=== PATIENT | male | born 1995 | race Caucasian/White ===

== ENCOUNTER 2018-03-09 11:22 | Emergency (ER) | payer BC ==
--- NOTE | 2018-03-09 11:24 | ER Report ---
History and Physical Time Seen By MD: 11:23 HPI/ROS CHIEF COMPLAINT: Lower back pain HISTORY OF PRESENT ILLNESS: Patient is a 22-year-old male who presents to the emergency department complaining of low back pain that began last evening although he's been having episodes of back pain over the past few months without any identifiable traumatic injury. He fevers or chills. He denies any unexpected weight loss. He denies any incontinence of urine or stool. Denies any saddle anesthesia. Pain is localized to the lower back worse with movement better at rest. Patient has been taking Motrin and Tylenol without any significant relief. Patient has never been evaluated for back pain prior to today. No history of night sweats. No history of lung, thyroid, prostate, kidney cancer General: No fevers, no chills Neck: Supple, without adenopathy Ab: No pain, no nausea, no vomiting, no diarrhea Ext: Low back pain Neuro: No headaches, no numbness or tingling, no focal neurological deficit Skin: No rashes, no lesions Allergies: Coded Allergies: Penicillins (Verified Allergy, Mild, RASH, 03/09/18) Home Meds Active Scripts Hydrocodone Bit/Acetaminophen (HYDROCODON-ACETAMINOPHEN 5-325) 1 Each Tablet, 1 EACH PO Q4-6H Y for PAIN, #12 TAB 0 Refills TAKE ONE TABLET BY MOUTH EVERY 4-6 HOURS NEEDED FOR PAIN Prov:JOSLYN WIGGINS MD 03/09/18 Methocarbamol (METHOCARBAMOL) 750 Mg Tablet, 1500 MG PO QID for Muscle Relaxant , #30 TAB 0 Refills Prov:JOSLYN WIGGINS MD 03/09/18 Reported Medications Adapalene/Benzoyl Peroxide (Epiduo Forte 0.3-2.5% Gel Pump) 45 Gm Gel.w.pump 03/09/18 Clindamycin Phos/Skin Clnsr 19 (CLINDACIN ETZ KIT) 1 Each Kit 03/09/18 Sulfamethoxazole/Trimet 800-160 Mg Tab (BACTRIM DS TABLET) 1 Each Tablet, 1 TAB PO Q12H, TAB 03/09/18 Past Medical/Surgical History Noncontributory Constitutional Vital Sign - Last 24 Hours 03/09/18 11:27 Temp 97.9 Pulse 85 Resp 16 B/P (MAP) 144/84 Pulse Ox 96 O2 Delivery Room Air Physical Exam General appearance: alert no distress. Back: Thoracic spine [has no spinal or paraspinal tenderness to palpation.] Lumbar spine has no spinal tenderness moderateparaspinal tenderness bilaterally Gastroinal: Abdomen is soft, non tender, no masses.. Skin: No lesions and no rashes. Vascular: Normal capillary refill and pulses to feet. Neurological: Motor function: leg strength normal and symmetric for both legs Sensory function: normal for all leg dermatomes. Straight leg raise negative to 70 degrees. Reflexes normal bilaterally on legs. Medical Decision Making EKG/Imaging Imaging FACILITY: [facility] PATIENT NAME: Harrison Newton : 1995 MR: [id number] V: [id number] EXAM DATE: [id number] ORDERING PHYSICIAN: JOSLYN WIGGINS TECHNOLOGIST: [place] [facility] [place] Harrison Newton : 1995 Visit/Account:[id number] Date of Sevice: 03/09/2018 Exam type: LUMBAR SPINE 2 OR 3 VIEW History: Low back pain no history of trauma Comparison: None. Findings: There are five nonrib-bearing lumbar-type vertebral bodies present. There is no evidence of acute fractures or subluxations the disc spaces appear well- preserved. Incidentally noted is spina bifida occulta of S1 IMPRESSION: 1. Unremarkable lumbar spine series other than incidental note of spina bifida occulta of S1. If patient's symptoms persist MR may be helpful Report Dictated By: Isabella Silva MD at 03/09/2018 11:53 AM Report E-Signed By: Isabella Silva MD at 03/09/2018 11:54 AM WSN:[email or web address] ED Course/Re-evaluation ED Course Plan at this time will be oral pain medication with Percocet and methocarbamol. I will obtain x-ray of the lumbar spine. Decision to Disposition Date: Mar 09, 2018 Decision to Disposition Time: 12:10 Depart Departure Latest Vital Signs Vital Signs Date Time Temp Pulse Resp B/P (MAP) Pulse Ox O2 Delivery O2 Flow Rate FiO2 03/09/18 11:27 97.9 85 16 144/84 96 Room Air Impression: Primary Impression: Back pain Condition: Improved Disposition: HOME OR SELF-CARE Referrals: KERRY TARANGO MD 2 Weeks if symptoms persist New Scripts Hydrocodone Bit/Acetaminophen (HYDROCODON-ACETAMINOPHEN 5-325) 1 Each Tablet 1 EACH PO Q4-6H Y for PAIN, #12 TAB 0 Refills TAKE ONE TABLET BY MOUTH EVERY 4-6 HOURS NEEDED FOR PAIN Prov: JOSLYN WIGGINS MD 03/09/18 Methocarbamol (METHOCARBAMOL) 750 Mg Tablet 1500 MG PO QID for Muscle Relaxant, #30 TAB 0 Refills Prov: JOSLYN WIGGINS MD 03/09/18 Patient Instructions: Acute Low Back Pain (ED) Problem Qualifiers Primary Impression: Back pain Back pain location: low back pain Chronicity: acute Back pain laterality: bilateral Sciatica presence: without sciatica Qualified Codes: M54.5 - Low back pain JOSLYN WIGGINS MD Mar 09, 2018 11:24
[2018-03-09] MEDS ORDERED: ADAP45GE (11:33)
[2018-03-09] MEDS ORDERED: SULF-198 PO (11:33)
[2018-03-09] MEDS ORDERED: CLIN1KIT (11:33)
[2018-03-09] MEDS ORDERED: METHOCARBAMOL 500 MG TAB PO ONE (11:40)
--- NOTE | 2018-03-09 11:58 | RADIOLOGY IMAGING REPORT ---
FACILITY: [facility] - [place] PATIENT NAME: Harrison Newton : 1995 MR: [id number] V: [id number] EXAM DATE: ORDERING PHYSICIAN: JOSLYN WIGGINS TECHNOLOGIST: Location: [facility] - [place] Patient: Harrison Newton : 1995 Visit/Account:[id number] Date of Sevice: 03/09/2018 Exam type: LUMBAR SPINE 2 OR 3 VIEW History: Low back pain no history of trauma Comparison: None. Findings: There are five nonrib-bearing lumbar-type vertebral bodies present. There is no evidence of acute fr actures or subluxations the disc spaces appear well-preserved. Incidentally noted is spina bifida oc culta of S1 IMPRESSION: 1. Unremarkable lumbar spine series other than incidental note of spina bifida occulta of S1. If pa tient's symptoms persist MR may be helpful Report Dictated By: Isabella Silva MD at 03/09/2018 11:53 AM Report E-Signed By: Isabella Silva MD at 03/09/2018 11:54 AM WSN:[email or web address]
[2018-03-09] MEDS ORDERED: METH-280 PO (12:11)
[2018-03-09] MEDS ORDERED: LOR5/325 PO (12:11)
[2018-03-09 12:30] VITALS: BP 116/75
== END 2018-03-09 12:45 | disposition home or self-care (01) ==
LOC: ER 11:26
DX: M54.5 Low back pain (principal)
CPT/HCPCS: 72100; 99283

== ENCOUNTER 2018-04-22 22:27 | Emergency (ER) | payer BC ==
[~2018-04-22 22:27] MED LIST: ADAP45GE; CLIN1KIT; LOR5/325 PO; METH-280 PO; SULF-198 PO
--- NOTE | 2018-04-22 22:30 | ER Report ---
History and Physical Time Seen By MD: 22:29 HPI/ROS CHIEF COMPLAINT: Shortness breath HISTORY OF PRESENT ILLNESS: Patient is a 22-year-old male here with complaints of dyspnea in the setting of asthma. Patient reports that he developed sinus pressure, postnasal drip, cough, shortness of breath starting this morning which was refractory to his albuterol inhaler. Patient denies fevers, chills, chest pain, blurred vision, difficulty swallowing, throat swelling, abdominal pain, nausea, vomiting. Patient is afebrile at time of evaluation, tachycardic and short of breath. REVIEW OF SYSTEMS: Constitutional: No fever, no chills. Eyes: No discharge. ENT: No sore throat. Cardiovascular: No chest pain, no palpitations. Respiratory: + cough, + shortness of breath. Gastrointestinal: No abdominal pain, no vomiting. Genitourinary: No hematuria. Musculoskeletal: No back pain. Skin: No rashes. Neurological: No headache, + sinus pressure. Allergies: Coded Allergies: Penicillins (Verified Allergy, Mild, RASH, 04/22/18) Home Meds Active Scripts Prednisone (PREDNISONE) 20 Mg Tablet, 40 MG PO QDAY for 4 Days, #8 TAB Prov:MELANY ESPINOSA S DO 04/22/18 Doxycycline Hyclate (DOXYCYCLINE HYCLATE) 100 Mg Tablet, 100 MG PO BID for 6 Days, #12 TAB Prov:MELANY ESPINOSA S DO 04/22/18 Methocarbamol (METHOCARBAMOL) 750 Mg Tablet, 1500 MG PO QID for Muscle Relaxant, #30 TAB 0 Refills Prov:JOSLYN WIGGINS MD 03/09/18 Reported Medications Albuterol Sulfate (PROVENTIL HFA) 6.7 Gm Inh, 1-2 PUFF INH 3-4XD, INH 04/22/18 Discontinued Reported Medications Adapalene/Benzoyl Peroxide (Epiduo Forte 0.3-2.5% Gel Pump) 45 Gm Gel.w.pump 03/09/18 Clindamycin Phos/Skin Clnsr 19 (CLINDACIN ETZ KIT) 1 Each Kit 03/09/18 Sulfamethoxazole/Trimet 800-160 Mg Tab (BACTRIM DS TABLET) 1 Each Tablet, 1 TAB PO Q12H, TAB 03/09/18 Discontinued Scripts Hydrocodone Bit/Acetaminophen (HYDROCODON-ACETAMINOPHEN 5-325) 1 Each Tablet, 1 EACH PO Q4-6H PRN for PAIN, #12 TAB 0 Refills TAKE ONE TABLET BY MOUTH EVERY 4-6 HOURS NEEDED FOR PAIN Prov:JOSLYN WIGGINS MD 03/09/18 Hx Substance Use Disorder: No Hx Alcohol Use: No Constitutional Vital Sign - Last 24 Hours 04/22/18 04/22/18 04/22/18 22:31 22:40 22:49 Temp 98.0 Pulse 114 113 117 Resp 18 16 16 B/P (MAP) 127/82 Pulse Ox 94 O2 Delivery Room Air Physical Exam General Appearance: The patient is alert, has no immediate need for airway protection and no signs of toxicity. NAD Eyes: Pupils equal and round no pallor or injection. ENT, Mouth: Mucous membranes are moist. Respiratory: There are no retractions, lungs are diminished with scant wheezing Cardiovascular: + tachycardic Gastrointestinal: Abdomen is soft and non tender, no masses, bowel sounds normal. Neurological: No focal deficits Skin: Warm and dry, no rashes. Musculoskeletal: Neck is supple non tender. Extremities are nontender, nonswollen and have full range of motion. DIFFERENTIAL DIAGNOSIS: After history and physical exam differential diagnosis was considered for shortness of breath including but not limited to pulmonary infectious process, COPD, asthma, pulmonary embolus and viral syndrome, pneumonia, bronchitis Medical Decision Making EKG/Imaging Imaging Chest x-ray showed no acute consolidations. Please see official radiology report for further details. ED Course/Re-evaluation ED Course Patient is a 22-year-old male here with complaints of respiratory distress, cough, postnasal drip, sinus pressure which has been present since this morning. Patient reports that his home inhaler has not been giving significant relief of symptoms. Patient was saturating at 94% at time of arrival. She is otherwise hemodynamically stable, afebrile in no acute distress. X-ray showed no acute consolidation or signs of pneumonia. Patient was given DuoNebs for symptom management. Chest x-ray showed no acute consolidations. Patient was given his 1st dose of prednisone for asthma exacerbation, doxycycline for sinus infection. Patient was given a prescription for a total of 5 days of prednisone 40 mg daily therapy. He was also given a prescription for doxycycline a total of 7 day therapy twice a day. Patient voiced understanding of plan and agreed to return promptly if he develops worsening symptoms, double vision, blurred vision, difficulty swallowing, fevers or shortness of breath. Patient was stable at time of discharge. Decision to Disposition Date: Apr 22, 2018 Decision to Disposition Time: 23:31 Depart Departure Latest Vital Signs Vital Signs Date Time Temp Pulse Resp B/P (MAP) Pulse Ox O2 Delivery O2 Flow Rate FiO2 04/22/18 22:49 117 16 04/22/18 22:31 98.0 127/82 94 Room Air Impression: Primary Impression: Asthma exacerbation Additional Impression: Sinus infection Condition: Improved Disposition: HOME OR SELF-CARE New Scripts Prednisone (PREDNISONE) 20 Mg Tablet 40 MG PO QDAY for 4 Days, #8 TAB Prov: MELANY ESPINOSA DO 04/22/18 Doxycycline Hyclate (DOXYCYCLINE HYCLATE) 100 Mg Tablet 100 MG PO BID for 6 Days, #12 TAB Prov: MELANY ESPINOSA DO 04/22/18 Patient Instructions: Asthma (ED), Sinusitis (ED) Additional Instructions: Please take one tablet of doxycycline twice daily for 6 days. Please take 2 tablets of prednisone daily for 4 days. Please return promptly if you develop worsening shortness breath, fevers, blurred vision, double vision, difficulty swallowing. Problem Qualifiers MELANY ESPINOSA DO Apr 22, 2018 22:29
[2018-04-22] MEDS ORDERED: ALB6.7R INH (22:35)
[2018-04-22] MEDS ORDERED: ALBUTEROL/IPRATROPIUM 3 ML NEB NEB ONE (22:40)
[2018-04-22 23:06] VITALS: BP 112/76
[2018-04-22] MEDS ORDERED: predniSONE 20 MG TAB PO ONE (23:25)
[2018-04-22] MEDS ORDERED: DOXYCYCLINE HYCL 100 MG TAB PO ONE (23:25)
[2018-04-22] MEDS ORDERED: PRED20TA6 PO ×2 (23:26→23:29)
[2018-04-22] MEDS ORDERED: DOXY-179 PO ×2 (23:26→23:29)
--- NOTE | 2018-04-22 23:37 | RADIOLOGY IMAGING REPORT ---
FACILITY: [facility] PATIENT NAME: Harrison Newton : 1995 MR: [id number] V: [id number] EXAM DATE: ORDERING PHYSICIAN: MELANY ESPINOSA [place]CHN[place]: [place] [facility] [place] : 1995 Visit/Account:[id number] Date of Sevice: 04/22/2018 CHEST PA AND LAT HISTORY: Shortness of breath. Cough. Symptoms for 5 days COMPARISON: None. TECHNIQUE: PA and lateral views of the chest. FINDINGS: Pulmonary: Lungs are clear. There is no pneumothorax or pleural effusion. Cardiomediastinal: Cardiac and mediastinal silhouettes are within normal limits. Bones/soft tissues: No acute osseous abnormality. There is pectus carinatum. There is mild wedging of T6-T9. The visible abdomen is normal. IMPRESSION: 1. No acute cardiopulmonary process. 2. Pectus carinatum. 3. Wedging of mid thoracic vertebral bodies is likely physiologic. Report Dictated By: Kimberley Barclay at 04/22/2018 11:31 PM Report E-Signed By: Kimberley Barclay at 04/22/2018 11:34 PM WSN:[id number]
== END 2018-04-22 23:39 | disposition home or self-care (01) ==
LOC: ER 22:30
DX: J45.901 Unspecified asthma with (acute) exacerbation (principal); J32.9 Chronic sinusitis, unspecified
CPT/HCPCS: 71046; 94640; 99283; J7512; J7620